=== PATIENT | male | born 1980 | race Caucasian/White ===

== ENCOUNTER 2016-08-16 08:35 | Emergency (ER) | payer BC ==
[2016-08-16 08:41] VITALS: BP 146/91
--- NOTE | 2016-08-16 09:23 | UC ---
Respiratory Complaint HPI - HPI Summary HPI Summary: The patient comes in today for: 1. Cough, night sweats, nasal congestion: Onset: 4 days ago. Palliative/provocative: Robitussin helped reduce the cough. Quality: Pressure Region: Sinuses. Severity: 2/10 Time: Constant. Associated symptoms: Rhinitis: Green. Cough: Productive, but he has not inspected the phlegm. Fever: No temperature taken. Chest pain: None. Dyspnea/wheezing: None. * - History of Current Complaint Chief Complaint: UCGeneralIllness Stated Complaint: CHEST CONGESTION Hx Obtained From: Patient - Allergies/Home Medications Allergies/Adverse Reactions: Allergies Allergy/AdvReac Type Severity Reaction Status Date / Time No Known Allergies Allergy Verified 11/02/12 10:17 PMH/Surg Hx/FS Hx/Imm Hx Previously Healthy: Yes Endocrine History Of: Denies: Diabetes, Thyroid Disease, Hyperthyroidism, Hypothyroidism, Dyslipidemia Cardiovascular History Of: Reports: Hypertension - He is not on medicadtions for this. His home blood pressure 120-130/85-90 Denies: Cardiac Disorders, Pacemaker/ICD, Myocardial Infarction, Congestive Heart Failure, Atrial Fibrillation, Deep Vein Thrombosis, Bleeding Disorders Respiratory History Of: Denies: COPD, Asthma, Bronchitis, Pneumonia, Pulmonary Embolism GI/ History Of: Reports: Kidney Stones - "I had a kidney stone once." Denies: Gastroesophageal Reflux, Ulcer, Gastrointestinal Bleed, Gall Bladder Disease, Diverticulitis, Renal Disease, Urosepsis Neurological History Of: Denies: TIA, CVA, Dementia, Seizures, Migraine Psychological History Of: Denies: Anxiety, Depression, Bipolar Disorder, Schizophrenia, Post Traumatic Stress Disorder Cancer History Of: Denies: Lung Cancer, Colorectal Cancer, Breast Cancer, Prostate Cancer, Cervical Cancer Other History Of: Negative For: HIV, Hepatitis B, Hepatitis C, Anticoagulant Therapy - Surgical History Surgical History: Yes Surgery Procedure, Year, and Place: Cataract surgery congenital cataract right eye. - Family History Known Family History: Positive: Cardiac Disease, Hypertension - Social History Occupation: Employed Full-time Alcohol Use: Occasionally Substance Use Type: None Smoking Status (MU): Never Smoked Tobacco Review of Systems Constitutional: Negative Skin: Negative Eyes: Negative ENT: Nasal Discharge Respiratory: Cough Cardiovascular: Negative Gastrointestinal: Negative Genitourinary: Negative All Other Systems Reviewed And Are Negative: Yes Physical Exam Triage Information Reviewed: Yes Appearance: Well-Appearing, No Pain Distress, Well-Nourished Vital Signs: Initial Vital Signs Temp 98.7 F 08/16/16 08:38 Pulse 94 08/16/16 08:38 Resp 16 08/16/16 08:38 BP 146/91 08/16/16 08:38 Pulse Ox 99 08/16/16 08:38 Eyes: Positive: Conjunctiva Clear. Negative: Discharge ENT: Positive: Hearing grossly normal. Negative: Pharyngeal erythema, Nasal congestion, Nasal drainage, TM bulging, TM dull, TM red, Tonsillar swelling, Tonsillar exudate Dental: Negative: Gross Decay/Caries @, Dental Fracture @ Neck: Positive: Supple, Nontender, No Lymphadenopathy. Negative: Nuchal Rigidity Respiratory: Positive: Chest non-tender, Lungs clear, No respiratory distress, No accessory muscle use. Negative: Rhonchi, Wheezing Cardiovascular: Positive: RRR, No Murmur Abdomen Description: Positive: Nontender, No Organomegaly, Soft. Negative: Distended, Guarding Musculoskeletal: Positive: Strength Intact, ROM Intact Neurological: Positive: Alert, Muscle Tone Normal Psychological: Positive: Age Appropriate Behavior, Consolable Skin: Negative: rashes, breakdown UC Diagnostic Evaluation - Laboratory O2 Sat by Pulse Oximetry: 99 Respiratory Course/Dx - Differential Dx/Diagnosis Differential Diagnosis/HQI/PQRI: Asthma, Laryngitis, Sinusitis Provider Diagnoses: Sinusitis. Bronchitis Discharge - Discharge Plan Condition: Stable Disposition: HOME Patient Education Materials: Sinusitis (ED), Acute Bronchitis (ED) Referrals: Manjit Lyle MD [Primary Care Provider] - 1 Week (Please see your primary care provider in a week to see how well you are doing. If you get worse, please be seen sooner in the ER or through us.)
== END 2016-08-16 09:29 | disposition home or self-care (01) ==
LOC: UCEAST 08:35
DX: J32.9 Chronic sinusitis, unspecified (principal); J40 Bronchitis, not specified as acute or chronic
CPT/HCPCS: 99212; G0463

== ENCOUNTER 2016-09-03 08:26 | Emergency (ER) | payer BC ==
--- NOTE | 2016-09-03 09:43 | UC ---
Throat Pain/Nasal Billy HPI - HPI Summary HPI Summary: 36 M presents with sore throat and congestion for 3 days. He admits to feeling febrile and dry cough. He denies any n/v, abdominal pain, chest pain, SOB, or chest pain. He has not taken anything for his symptoms. He was diagnosed with a sinus infection three weeks ago and given antibiotics but he says that has since resolved. PMH none, nonsmoker - History of Current Complaint Stated Complaint: CONGESTION Time Seen by Provider: 09/03/16 09:41 - Allergies/Home Medications Allergies/Adverse Reactions: Allergies Allergy/AdvReac Type Severity Reaction Status Date / Time No Known Allergies Allergy Verified 09/03/16 09:40 PMH/Surg Hx/FS Hx/Imm Hx Endocrine History Of: Denies: Diabetes, Thyroid Disease, Hyperthyroidism, Hypothyroidism, Dyslipidemia Cardiovascular History Of: Reports: Hypertension Denies: Cardiac Disorders, Pacemaker/ICD, Myocardial Infarction, Congestive Heart Failure, Atrial Fibrillation, Deep Vein Thrombosis, Bleeding Disorders Respiratory History Of: Denies: COPD, Asthma, Bronchitis, Pneumonia, Pulmonary Embolism GI/ History Of: Reports: Kidney Stones - "I had a kidney stone once." Denies: Gastroesophageal Reflux, Ulcer, Gastrointestinal Bleed, Gall Bladder Disease, Diverticulitis, Renal Disease, Urosepsis Neurological History Of: Denies: TIA, CVA, Dementia, Seizures, Migraine Psychological History Of: Denies: Anxiety, Depression, Bipolar Disorder, Schizophrenia, Post Traumatic Stress Disorder Cancer History Of: Denies: Lung Cancer, Colorectal Cancer, Breast Cancer, Prostate Cancer, Cervical Cancer Other History Of: Negative For: HIV, Hepatitis B, Hepatitis C, Anticoagulant Therapy - Surgical History Surgical History: Yes Surgery Procedure, Year, and Place: Cataract surgery congenital cataract right eye. - Family History Known Family History: Positive: Cardiac Disease, Hypertension - Social History Alcohol Use: Occasionally Substance Use Type: None Smoking Status (MU): Never Smoked Tobacco Review of Systems Constitutional: Fever ENT: Sore Throat, Nasal Discharge Respiratory: Cough Cardiovascular: Negative Gastrointestinal: Negative All Other Systems Reviewed And Are Negative: Yes Physical Exam Triage Information Reviewed: Yes Appearance: Well-Appearing Vital Signs Reviewed: Yes Eyes: Positive: Conjunctiva Clear ENT: Positive: Normal ENT inspection, Pharynx normal, Nasal drainage, TMs normal - some irriation present. Negative: Tonsillar swelling, Tonsillar exudate, Trismus, Muffled/hoarse voice Throat Pain/Nasal Course/Dx - Course Course Of Treatment: 36M presents with chest congestion and sore throat for 3 days discussed throat does not appear strep like, has some visible post nasal drip, discussed that likely viral at this point but if symptoms present to 10 days to return and an antibiotic can be given at that point, advised to follow up with primary about BP, patient agrees with plan - Differential Dx/Diagnosis Differential Diagnosis/HQI/PQRI: Influenza, Pharyngitis, Sinusitis, Tonsillitis Provider Diagnoses: viral sinusitis Discharge - Discharge Plan Condition: Good Disposition: HOME Prescriptions: Fluticasone NASAL SPRAY 50MCG* [Flonase NASAL SPRAY 50MCG*] 2 spray BOTH NARES DAILY #1 btl Patient Education Materials: Rhinosinusitis (ED) Referrals: Manjit Lyle MD [Primary Care Provider] - Additional Instructions: Use saline spray in nose as much as needed Use humidifier in room or can use warm water in bowls Use intranasal steroid one spray each nostril twice a day Take Tylenol or ibuprofen for headache every 6 hours Follow up with primary care physician about blood pressure
[2016-09-03 09:44] VITALS: BP 156/100
== END 2016-09-03 09:57 | disposition home or self-care (01) ==
LOC: UCEAST 08:26
DX: J32.8 Other chronic sinusitis (principal)
CPT/HCPCS: 99212; G0463

== ENCOUNTER 2017-01-28 08:30 | Emergency (ER) | payer BC ==
[2017-01-28 08:46] VITALS: BP 143/101
--- NOTE | 2017-01-28 09:18 | UC ---
Ac Reilly Claudia, scribed for Dylan Michel MD on 01/28/17 at 0914 . Respiratory Complaint HPI - HPI Summary HPI Summary: 36 year old male presents to the [facility] with constant cough. Pt states cough, chills, and nasal discharge since . He notes productive cough worsening over the past day. Pt denies any aggravating or alleviating factors. Pt denies wheezing, SOB .Pt is unsure of any fever. He also denies using any OTC medications to alleviate Sx. - History of Current Complaint Chief Complaint: UCRespiratory Stated Complaint: URI Hx Obtained From: Patient Onset/Duration: Gradual Onset, Lasting Days Character: Cough: Productive Associated Signs And Symptoms: Positive: Chills - Allergies/Home Medications Allergies/Adverse Reactions: Allergies Allergy/AdvReac Type Severity Reaction Status Date / Time No Known Allergies Allergy Verified 09/03/16 09:40 PMH/Surg Hx/FS Hx/Imm Hx Previously Healthy: Yes Other History Of: Negative For: HIV, Hepatitis B, Hepatitis C, Anticoagulant Therapy - Surgical History Surgical History: Yes Surgery Procedure, Year, and Place: Cataract surgery congenital cataract right eye. - Family History Known Family History: Positive: Cardiac Disease, Hypertension - Social History Occupation: Employed Full-time Alcohol Use: Occasionally Substance Use Type: None Smoking Status (MU): Never Smoked Tobacco - Immunization History Most Recent Influenza Vaccination: fall 2015 Review of Systems Constitutional: Chills Skin: Negative Eyes: Negative ENT: Nasal Discharge Respiratory: Shortness Of Breath - NO SOB, Cough Cardiovascular: Negative Gastrointestinal: Negative Genitourinary: Negative Motor: Negative Neurovascular: Negative Musculoskeletal: Negative Neurological: Negative Psychological: Negative All Other Systems Reviewed And Are Negative: Yes Physical Exam Triage Information Reviewed: Yes Appearance: Well-Appearing, No Pain Distress, Well-Nourished Vital Signs: Initial Vital Signs Temp 98.5 F 01/28/17 08:42 Pulse 90 01/28/17 08:42 Resp 18 01/28/17 08:42 BP 143/101 01/28/17 08:42 Pulse Ox 100 01/28/17 08:42 Vital Signs Reviewed: Yes Eyes: Positive: Conjunctiva Clear ENT: Positive: Normal ENT inspection, Hearing grossly normal, Pharynx normal, TMs normal Neck exam: Normal Neck: Positive: Supple, Nontender, No Lymphadenopathy Respiratory: Positive: Chest non-tender, Lungs clear, Normal breath sounds Cardiovascular: Positive: RRR, No Murmur, Pulses Normal Abdominal Exam: Normal Skin Exam: Normal UC Diagnostic Evaluation - Laboratory O2 Sat by Pulse Oximetry: 100 Respiratory Course/Dx - Course Course Of Treatment: ELEVATED BLOOD PRESSURE MOST LIKELY DUE TO CURREN ILLNESS - Differential Dx/Diagnosis Provider Diagnoses: VIRAL BRONCHITIS Discharge - Discharge Plan Condition: Stable Disposition: HOME Prescriptions: Benzonatate CAP* [Tessalon 100 MG CAP*] 100 mg PO TID #21 cap Patient Education Materials: Acute Bronchitis (ED) Referrals: Manjit Lyle MD [Primary Care Provider] - If Needed Additional Instructions: VIRAL BRONCHITIS , NO NEED FOR ABX CONT. WITH REST, INCREASE FLUID, TYLENOL NEEDED FOR PAIN OR FEVER, FOLLOW UP WITH YOUR PCP NEEDED The documentation as recorded by the Ac aldridge Claudia accurately reflects the service I personally performed and the decisions made by me, Dylan Michel MD.
== END 2017-01-28 09:20 | disposition home or self-care (01) ==
LOC: UCEAST 08:30
DX: J20.8 Acute bronchitis due to other specified organisms (principal)
CPT/HCPCS: 99212; G0463

== ENCOUNTER 2017-02-09 09:51 | Emergency (ER) | payer BC ==
--- NOTE | 2017-02-09 11:55 | UC ---
Respiratory Complaint HPI - HPI Summary HPI Summary: Cough starting 2.5 weeks ago, constant dry cough without wheezing or fever. Came here, was given tessalon. Now returns with worsening cough, nasal congestion, and night sweats. has discomfort in R anterior ribs from coughing. - History of Current Complaint Chief Complaint: UCRespiratory Stated Complaint: RESP COUGH Time Seen by Provider: 02/09/17 11:36 Hx Obtained From: Patient Onset/Duration: Gradual Onset, Lasting Weeks Timing: Constant Severity Initially: Mild Severity Currently: Moderate Character: Cough: Nonproductive Aggravating Factors: Exertion, Deep Breaths, Recumbent Position Alleviating Factors: OTC Meds Associated Signs And Symptoms: Positive: Pleuritic Chest Pain, URI, Nasal Congestion. Negative: Fever, Dizziness - Allergies/Home Medications Allergies/Adverse Reactions: Allergies Allergy/AdvReac Type Severity Reaction Status Date / Time No Known Allergies Allergy Verified 09/03/16 09:40 PMH/Surg Hx/FS Hx/Imm Hx Cardiovascular History: Hypertension Other History Of: Negative For: HIV, Hepatitis B, Hepatitis C, Anticoagulant Therapy - Surgical History Surgical History: Yes Surgery Procedure, Year, and Place: Cataract surgery congenital cataract right eye. - Family History Known Family History: Positive: Cardiac Disease, Hypertension - Social History Alcohol Use: Occasionally Substance Use Type: None Smoking Status (MU): Never Smoked Tobacco - Immunization History Most Recent Influenza Vaccination: fall 2015 Review of Systems Constitutional: Negative Skin: Negative Eyes: Negative ENT: Nasal Discharge Respiratory: Cough Cardiovascular: Negative Gastrointestinal: Negative Genitourinary: Negative Motor: Negative Neurovascular: Negative Musculoskeletal: Negative Neurological: Negative Psychological: Negative All Other Systems Reviewed And Are Negative: Yes Physical Exam Triage Information Reviewed: Yes Appearance: Well-Appearing, No Pain Distress, Well-Nourished Vital Signs: Initial Vital Signs Temp 98.4 F 02/09/17 09:55 Pulse 101 02/09/17 09:55 Resp 20 02/09/17 09:55 Pulse Ox 98 02/09/17 09:55 Vital Signs Reviewed: Yes Eye Exam: Other - PERRL Eyes: Positive: Conjunctiva Clear ENT: Positive: Hearing grossly normal, Pharynx normal, Nasal congestion, TMs normal. Negative: Nasal drainage, Tonsillar swelling Dental Exam: Normal Respiratory Exam: Other - occ jessie cough Respiratory: Positive: Chest non-tender, Lungs clear, Normal breath sounds, No respiratory distress, No accessory muscle use Cardiovascular: Positive: No Murmur, Tachycardia Musculoskeletal Exam: Normal Neurological Exam: Normal Neurological: Positive: Alert Psychological Exam: Normal Skin Exam: Normal UC Diagnostic Evaluation - Laboratory O2 Sat by Pulse Oximetry: 98 Respiratory Course/Dx - Differential Dx/Diagnosis Provider Diagnoses: acute bronchitis Discharge - Discharge Plan Condition: Stable Disposition: HOME Prescriptions: Albuterol HFA INHALER* [Ventolin HFA Inhaler*] 1 - 2 puff INH Q6H PRN #1 mdi PRN Reason: wheeze Clarithromycin TAB* [Biaxin 500 MG TAB*] 500 mg PO BID #14 tab Patient Education Materials: Acute Bronchitis (ED) Referrals: Manjit Lyle MD [Primary Care Provider] - Additional Instructions: Due to the length and progression of your symptoms, it appears that a bacterial component of your illness is most likely than with most respiratory illness. Please return here or see your primary care provider if you do not see clear improvement within the next few days.
== END 2017-02-09 11:55 | disposition home or self-care (01) ==
LOC: UCEAST 09:51
DX: J20.9 Acute bronchitis, unspecified (principal); I10 Essential (primary) hypertension
CPT/HCPCS: 99212; G0463